=== PATIENT | female | born 1975 | race Hispanic/Latino ===

== ENCOUNTER 2016-07-20 12:13 | Emergency (ER) | payer SELFPAY ==
--- NOTE | 2016-07-20 14:58 | RAD ---
FACIAL BONE RADIOGRAPHS: Date: 07-20-16 Provided Clinical History: Facial pain status post injury. FINDINGS: There is no evidence for a displaced facial bone fracture. The paranasal sinuses appear abnormally a erated. IMPRESSION: As above. POS: [id number]
== END 2016-07-20 13:21 | disposition home or self-care (01) ==
LOC: NAV ERS 12:13
DX: S00.83XA Contusion of other part of head, initial encounter (principal); I10 Essential (primary) hypertension; Z79.899 Other long term (current) drug therapy; X58.XXXA Exposure to other specified factors, initial encounter
CPT/HCPCS: 70150